=== PATIENT | female | born 2000 | race Caucasian/White ===

== ENCOUNTER 2019-12-26 00:34 | Emergency (ER) | payer MEDICAID ==
[~2019-12-26] VITALS: Ht 154.9 cm; Wt 71.0 kg
[2019-12-26] MEDS ORDERED: IBUPROFEN 600MG TABLET PO ONE (02:00)
[2019-12-26 02:13] VITALS: BP 115/77
== END 2019-12-26 03:28 | disposition home or self-care (01) ==
LOC: ER 00:34
DX: S60.011A Contusion of right thumb without damage to nail, initial encounter (principal); S80.02XA Contusion of left knee, initial encounter; V49.49XA Driver injured in collision with other motor vehicles in traffic accident, initial encounter; Y93.89 Activity, other specified; Y92.89 Other specified places as the place of occurrence of the external cause; Y99.8 Other external cause status
CPT/HCPCS: 71045; 73130; 73562; 81025; 99284